=== PATIENT | female | born 2000 | race American Indian/Alaskan Native ===

== ENCOUNTER 2019-06-23 20:07 | Emergency (ER) | payer SELFPAY ==
[2019-06-23 20:16] VITALS: BP 126/58
--- NOTE | 2019-06-23 21:40 | Emergency Department Report ---
ED General Adult HPI - General Chief complaint: Earache Stated complaint: RT EAR PAIN Time Seen by Provider: 06/23/19 21:24 Source: patient Mode of arrival: Ambulatory Limitations: No Limitations - History of Present Illness Initial comments: Patient is a 19-year-old [place] female is complaining of right-sided ear pain for the past week. Patient states pain is 5 out of 10 in severity and she occasionally feeling a popping sensation. Patient denies fevers chills sore throat cough cold or congestion at this time. - Related Data Allergies Allergy/AdvReac Type Severity Reaction Status Date / Time No Known Allergies Allergy Verified 06/23/19 20:08 ED Review of Systems ROS: Stated complaint: RT EAR PAIN Other details as noted in HPI Comment: All other systems reviewed and negative ED Physical Exam - General Limitations: No Limitations General appearance: alert, in no apparent distress - Head Head exam: Present: atraumatic, normocephalic - Eye Eye exam: Present: normal appearance - ENT ENT exam: Present: mucous membranes dry, TM's normal bilaterally (there is a small amount of clear fluid behind the right TM) - Respiratory Respiratory exam: Absent: respiratory distress ED Course Vital Signs 06/23/19 20:12 Temperature 99.0 F Pulse Rate 87 Respiratory 18 Rate Blood Pressure 126/58 O2 Sat by Pulse 99 Oximetry ED Medical Decision Making - Medical Decision Making Patient has no evidence of any infection. The TM is not erythematous or bu lging. This included fluid behind the TM on the right. Patient instructed to use [id number] Sudafed and she'll be discharged home to follow with outpatient resources. Critical care attestation.: If time is entered above; I have spent that time in minutes in the direct care of this critically ill patient, excluding procedure time. ED Disposition Clinical Impression: Ear congestion Qualifiers: Laterality: right Qualified Code(s): H93.8X1 - Other specified disorders of ri ght ear Disposition: Z- MED SCREENING EXAM-LEFT Is pt being admited?: No Does the pt Need Aspirin: No Condition: Stable Additional Instructions: Please take [id number] Sudafed as directed as well as Flonase [id number] once daily Forms: Work/School Release Form(ED) Time of Disposition: 21:39
== END 2019-06-23 22:00 | disposition left against medical advice (07) ==
LOC: ED 20:07
DX: H93.8X1 Other specified disorders of right ear (principal); H92.01 Otalgia, right ear
CPT/HCPCS: 99281

== ENCOUNTER 2019-10-26 22:13 | Emergency (ER) | payer SELFPAY ==
[2019-10-26 22:21] VITALS: BP 125/76
[2019-10-26 22:53] LABS: Bacteria,Urine 1+ /HPF (Negative); Bilirubin,Urine NEG (Negative); Blood,Urine NEG (Negative); Color,Urine Yellow (Yellow); Mucus,Urine 3+ /HPF
[2019-10-26 22:54] LABS: HCG Qualitative,Urine Positive (Negative)
--- NOTE | 2019-10-26 23:17 | Emergency Department Report ---
ED Female HPI - General Chief complaint: Urogenital-Female Stated complaint: PELVIC PAIN Time Seen by Provider: 10/26/19 23:10 Source: patient Mode of arrival: Ambulatory Limitations: No Limitations - History of Present Illness Initial comments: 19-year-old obese -[place] female presents emergency department complaining of a few day history of bilateral fluctuant of pelvic pain which is been lasting for the past couple weeks of an unknown etiology states that she is not had any menses this week after reports no vaginal bleeding or vaginal discharge. There is no dysuria no pelvic trauma no fever, chills, sweats no chest pain or palpitations no nausea or vomiting MD Complaint: pelvic pain - Related Data Allergies Allergy/AdvReac Type Severity Reaction Status Date / Time No Known Allergies Allergy Verified 06/23/19 20:08 ED Review of Systems ROS: Stated complaint: PELVIC PAIN Other details as noted in HPI Comment: All other systems reviewed and negative ED Past Medical Hx - Past Medical History Previous Medical History?: No - Surgical History Past Surgical History?: No - Social History Smoking Status: Never Smoker Substance Use Type: None ED Physical Exam - General Limitations: No Limitations General appearance: alert, in no apparent distress - Head Head exam: Present: atraumatic, normocephalic - Eye Eye exam: Present: normal appearance - ENT ENT exam: Present: mucous membranes moist - Neck Neck exam: Present: normal inspection - Respiratory Respiratory exam: Present: normal lung sounds bilaterally. Absent: respiratory distress - Cardiovascular Cardiovascular Exam: Present: regular rate, normal rhythm. Absent: systolic murmur, diastolic murmur, rubs, gallop - GI/Abdominal GI/Abdominal exam: Present: soft, tenderness, normal bowel sounds - Extremities Exam Extremities exam: Present: normal inspection - Back Exam Back exam: Present: normal inspection - Neurological Exam Neurological exam: Present: alert, oriented X3 - Psychiatric Psychiatric exam: Present: normal affect, normal mood - Skin Skin exam: Present: warm, dry, intact, normal color. Absent: rash ED Course Vital Signs 10/26/19 22:19 Temperature 98.3 F Pulse Rate 118 H Respiratory 18 Rate Blood Pressure 125/76 O2 Sat by Pulse 98 Oximetry Critical care attestation.: If time is entered above; I have spent that time in minutes in the direct care of this critically ill patient, excluding procedure time. ED Disposition Clinical Impression: Pelvic pain Disposition: Z[facility]in GON[facility]ALEZ Is pt being admited?: No Does the pt Need Aspirin: No Condition: Undetermined Referrals: PRIMARY CARE, [Primary Care Provider] - 3-5 Days
== END 2019-10-26 23:52 | disposition left against medical advice (07) ==
LOC: ED 22:13
DX: R10.2 Pelvic and perineal pain (principal)
CPT/HCPCS: 81001; 81025; 99283